=== PATIENT | female | born 1960 | race Caucasian/White ===

== ENCOUNTER 2023-04-01 17:06 | Emergency (ER) | payer BC, OTHER ==
[~2023-04-01] VITALS: Ht 167.6 cm; Wt 87.9 kg
[2023-04-01 17:27] VITALS: BP 120/68; PULSE 86; RESP 16; TEMP 98.6; O2SAT 97
[2023-04-01] MEDS ORDERED: LIDOCAINE 1% HCL (LOCAL ANESTH.) INJ 20ML MDV IJ ONE (20:00)
[2023-04-01] MEDS ORDERED: AUG875T PO (20:15)
[2023-04-01] MEDS ORDERED: TETANUS-DIPTH-ACEL PERTUSSIS 0.5ML SYR Tdap IM ONE ×2 (20:15→21:30)
[2023-04-01] MEDS ORDERED: AMOXICILLIN/CLAVUL 875 MG TAB PO ONE (20:15)
[2023-04-01] MEDS ORDERED: MUPI2OIN2 EX (20:15)
== END 2023-04-01 22:10 | disposition home or self-care (01) ==
LOC: ER 17:06
DX: S61.411A Laceration without foreign body of right hand, initial encounter (principal); M85.841 Other specified disorders of bone density and structure, right hand; M19.90 Unspecified osteoarthritis, unspecified site; Z85.9 Personal history of malignant neoplasm, unspecified; W54.0XXA Bitten by dog, initial encounter; Y93.89 Activity, other specified; Y92.89 Other specified places as the place of occurrence of the external cause; Y99.8 Other external cause status
CPT/HCPCS: 12002; 73130; 90471; 90715; 99283; J2001